=== PATIENT | female | born 1935 | race Caucasian/White ===

== ENCOUNTER → 2016-05-28 | Outpatient (CLI) | payer BC ==
[~2016-05-28] MED LIST: CALC-440 PO; CHOL1CAP13 PO; DILT-117 PO; GLUCTAB7 PO; IRON PO; OMEGCAP2 PO; RXC5 PO
[2016-05-28 08:36] LABS: BLOOD UREA NITROGEN 18 mg/dl (7-18); BUN/CREATININE RATIO 18.9 (10-20); CALCIUM 9.1 mg/dl (8.5-10.1); CARBON DIOXIDE 30 mmol/L (21-32); CHLORIDE 108 mmol/L (98-107); CREATININE 0.95 mg/dl (0.60-1.20); GLUCOSE 86 mg/dl (70-99); POTASSIUM 4.2 mmol/L (3.5-5.1); SODIUM 143 mmol/L (136-145)
== END | disposition home or self-care (01) ==
LOC: C.LABFOXMH 08:07
PROVIDERS: ATTEND Internal Medicine
DX: I10 Essential (primary) hypertension (principal)

== ENCOUNTER → 2017-02-01 | Outpatient (CLI) | payer BC ==
[~2017-02-01] MED LIST changes: +CYAN100020 PO; +DILT-113 PO; +EPLE25TA3 PO; +GLUCTAB32 PO
== END | disposition home or self-care (01) ==
LOC: C.RDSM 14:12
PROVIDERS: ATTEND Orthopaedic Surgery
DX: M79.604 Pain in right leg (principal); M79.605 Pain in left leg

== ENCOUNTER 2017-03-15 06:31 | Inpatient (IN) | payer BC, OTHER ==
[2017-02-11 11:45] VITALS: BMI 29.0
--- NOTE | 2017-02-11 12:25 | PAT Medication Instructions ---
Service Date Feb 11, 2017. Current Home Medication List Calcium Citrate-Vitamin D (Calcium Citrate + D3), 1 TAB PO QAM Cholecalciferol (D3), 2,000 INTER.UNIT PO QPM Cyanocobalamin (Vitamin B12), 1,000 MCG PO QPM Diltiazem Hcl Ext Rel (Tiazac), 180 MG PO QPM Eplerenone (Eplerenone), 25 MG PO QAM Oyttaeanrit-Trmhsreuega-Gg Cho (Glucosamine Chondroitin &), 1 TAB PO QAM [place]-3 Fatty Acids (Fish Oil), 1 TAB PO QAM [Iron], 65 MG PO QAM Medication Instructions For Your Scheduled Surgery - Hold the following medications 2 weeks prior to surgery: Ogvhdubxwsz-Adxeeuqxoeo-Px Cho (Glucosamine Chondroitin &), 1 TAB PO QAM [place]-3 Fatty Acids (Fish Oil), 1 TAB PO QAM - Hold the following medications the morning of surgery: Calcium Citrate-Vitamin D (Calcium Citrate + D3), 1 TAB PO QAM [Iron], 65 MG PO QAM Eplerenone (Eplerenone), 25 MG PO QAM - Take the following medications as scheduled the night before surgery: Cholecalciferol (D3), 2,000 INTER.UNIT PO QPM Cyanocobalamin (Vitamin B12), 1,000 MCG PO QPM Diltiazem Hcl Ext Rel (Tiazac), 180 MG PO QPM Nothing to eat or drink after midnight If you have any questions please call us at [phone] or [phone] or [phone]
--- NOTE | 2017-02-11 13:14 | DIAGNOSTIC IMAGING REPORT ---
CHEST 2 VIEWS ROUTINE CLINICAL HISTORY: 81 years-old Female presenting with preadmission chest x-ray. TECHNIQUE: PA and lateral views of the chest were obtained. COMPARISON: 12/30/2013. FINDINGS: Atherosclerosis of aortic arch. Cardiac silhouette normal in size. Lungs and pleural spaces clear. Right shoulder arthroplasty. Degenerative change of the spine. Upper abdomen normal. IMPRESSION: 1. No acute cardiopulmonary disease. Electronically signed by: Alejo Ball M.D. 02/11/2017 1:13 PM Dictated Date/Time: 02/11/2017 1:12 PM
[2017-02-11 13:38] LABS: BASO % 0.3 %; BASO ABS # 0.02 K/uL (0-0.2); EOS % 2.1 %; EOS ABS # 0.13 K/uL (0-0.5); HEMATOCRIT 42.7 % (37-47); HEMOGLOBIN 13.9 g/dL (12.0-16.0); IG# 0.02 K/uL (0.00-0.02); LYMPH ABS # 1.95 K/uL (1.2-3.4); MEAN CELL VOLUME 95.5 fL (80-100); MEAN CORPUSCULAR HEMOGLOBIN 31.1 pg (25-34); MEAN CORPUSCULAR HGB CONC 32.6 g/dl (32-36); MEAN PLATELET VOLUME 9.7 fL (7.4-10.4); MONO % 7.9 %; MONO ABS # 0.48 K/uL (0.11-0.59); NEUT % 57.4 %; NEUT ABS # 3.49 K/uL (1.4-6.5); PLATELET COUNT 316 K/uL (130-400); RED CELL DISTRIBUTION WIDTH CV 13.6 % (11.5-14.5); RED CELL DISTRIBUTION WIDTH SD 47.4 fL (36.4-46.3); WHITE BLOOD COUNT 6.09 K/uL (4.8-10.8)
[2017-02-11 13:50] LABS: INR 0.9 (0.9-1.1); PTT PATIENT 24.5 SECONDS (21.0-31.0)
[2017-02-11 14:24] LABS: CALCIUM 9.3 mg/dl (8.5-10.1); CREATININE 0.93 mg/dl (0.60-1.20); POTASSIUM 4.4 mmol/L (3.5-5.1)
--- NOTE | 2017-03-08 08:23 | HISTORY & PHYSICAL EXAMINATION ---
DATE OF ADMISSION: 03/15/2017 CHIEF COMPLAINT: Right knee pain and discomfort. HISTORY OF PRESENT ILLNESS: The patient is an 81-year-old very healthy, active spry female who presents for surgical treatment of her right knee. She has a long history of right knee pain and discomfort. She describes it has gotten worse over the past 5-10 years. She has been through extensive conservative treatment including injections with steroids and viscosupplementation which has become less successful over time. Minimal response from the injections. The more she walks, the more it hurts. It is global pain. It is worse going up and down steps. She would like to have her right knee replaced as it is interfering with her quality of life. PAST MEDICAL HISTORY: 1. Hypertension. 2. History of breast cancer status post mastectomy in remission. 3. Short term memory loss. PAST SURGICAL HISTORY: Include: 1. Breast cancer mass/mastectomy. 2. Right shoulder replacement. ALLERGIES: None. CURRENT MEDICINES: Include: 1. Eplerenone once a day for blood pressure. 2. Diltiazem once a day for blood pressure. SOCIAL HISTORY: female. She is 81. Medical doctor is Dr. Fernandez. 1-2 drinks per day. Two children. FAMILY HISTORY: Significant for lung cancer. REVIEW OF SYSTEMS: Significant for breast cancer in remission. No chest pain or shortness of breath. No history of DVT or PE. No known bleeding problems. PHYSICAL EXAMINATION: GENERAL: Shows a pleasant, healthy appearing elderly female. Looks to be in excellent health. HEENT: Benign. NECK: Supple. No lymphadenopathy. LUNGS: Clear to auscultation. HEART: Regular rate and rhythm. ABDOMEN: Soft, nontender, nondistended. EXTREMITIES: Grossly neurovascularly intact except as follows: Examination of the right leg reveals the patient walks with a slight bit of limp. She has varus alignment to her knee. She got bony hypertrophy medially. Fairly stiff knee with about 10-15 degree flexion contracture, can only flex to about 90 degrees. No pain with hip motion. X-RAYS: X-rays of the right knee reviewed. It shows advanced right knee DJD. She has complete loss of her medial joint space. She has subchondral sclerosis. He has significant osteophytes particularly in the medial side of her knee. She has chondrocalcinosis laterally. She has significant patellofemoral disease as well. ASSESSMENT: An 81-year-old female with advanced right knee tricompartmental disease unresponsive to conservative treatment. She would like to have her right knee replaced. PLAN: We will take her to the operating room and do a right total knee replacement. The risks and benefits of this procedure were explained to the patient including but not limited to DVT, PE, , infection, neurological injury, vascular injury, bleeding problems, pain, limited range of motion, stiffness, failure to relieve her symptoms, incomplete relief of symptoms, need for further surgery in the future, fracture, leg length inequality, nerve palsy, etc. The patient understands and desires to proceed. Informed consent was obtained. As far as discharge plans, she is planning to be discharged to home using [facility] home program. Other options including [facility] are also a consideration depending on insurance issues. I will see her back 2 weeks postop. TITI
[2017-03-15] VITALS (11 sets, daily range): BP systolic 108–139; BP diastolic 61–78; PULSE 66–88; TEMP 36.4–36.9; O2SAT 92–99; Ht 157.5 cm; Wt 73.2 kg
[~2017-03-15] VITALS: Ht 157.5 cm; Wt 73.2 kg
[~2017-03-15 06:31] MED LIST changes: +ACETAMINOPHEN 500 MG TAB PO SCH; +BUPIVACAINE 0.5 % 5 MG/1 ML PF 10ML VIAL ONE; +BUPIVACAINE LIPOSOME 266 MG, BUPIVACAINE/EPINEPHRINE INJ 50 ML, SODIUM CHLORIDE 0.9% PF... INFIL SCH; +CEFAZOLIN 2000MG IV PUSH 10 ML IV SCH; -DILT-117 PO; +FAMOTIDINE 20 MG TAB PO SCH; +FENTANYL CITRATE INJ 50 MCG/1 ML 2 ML VIAL ONE; +GABAPENTIN 300 MG CAP PO SCH; -GLUCTAB7 PO; +LACTATED RINGER'S 1000ML 1,000 ML IV SCH; +LACTATED RINGER'S 1000ML 500 ML IV SCH; +LACTATED RINGER'S 1000ML IV SCH; +LACTATED RINGER'S 500 ML IV SCH; +METOCLOPRAMIDE HCL 10 MG TAB PO SCH; +MIDAZOLAM HCL 1 MG/ML 2ML VIAL ONE; +NSS 1000ML IV SCH; +ROPIVACAINE 0.5% 5 MG/ML 30 ML VIAL ONE; -RXC5 PO; +SCOPOLAMINE 1.5 MG TDSY TD SCH; +TRANEXAMIC ACID INJ 1,000 MG in SYRINGE 0 ML IV SCH
--- NOTE | 2017-03-15 06:48 | History & Physical Bridge Note ---
H&P Re-Evaluation Bridge Note: I have examined the patient, reviewed the History & Physical and in the interval since the performance of the History & Physical I have noted the following changes of clinical significance: No changes noted
[2017-03-15] MEDS ORDERED: PROPOFOL IV EMULSION 10 MG/ML 20 ML VIAL IV ONE ×2 (07:15→11:15)
[2017-03-15] MEDS ORDERED: HYDROmorphone INJ 2 MG/ML SYR/VIAL IV PRN (07:30)
[2017-03-15] MEDS ORDERED: ONDANSETRON INJ 2 MG/ML 2 ML VIAL IV PRN ×2 (07:30→11:00)
[2017-03-15] MEDS ORDERED: ATROPINE SULFATE 0.1 MG/ML 5ML SYR IV PRN (07:30)
[2017-03-15] MEDS ORDERED: EpHEDrine SULFATE INJ 50 MG/ML AMP IV PRN (07:30)
[2017-03-15] MEDS ORDERED: PHENYLEPHRINE 100MCG/ML 5ML SYR IV PRN (07:30)
[2017-03-15] MEDS ORDERED: MIDAZOLAM HCL 1 MG/ML 2ML VIAL ONE (07:41)
[2017-03-15] MEDS ORDERED: ALBUT/IPRATROP 3MG/0.5MG NEB 3 ML VIAL INH ONE (08:45)
[2017-03-15] MEDS ORDERED: BUPIVACAINE/EPINEPHRINE 0.25% 1:200,000 30 ML VIAL ONE (08:51)
[2017-03-15] MEDS ORDERED: BACITRACIN 50000 UNIT VIAL ONE (08:51)
[2017-03-15] MEDS ORDERED: BUPIVACAINE LIPOSOME 1/3% 266 MG/20 ML VIAL INFIL ONE (08:51)
[2017-03-15] MEDS ORDERED: SODIUM CHLORIDE 0.9% PF 50 ML VIAL ONE (08:51)
[2017-03-15] MEDS ORDERED: FENTANYL CITRATE INJ 50 MCG/1 ML 2 ML VIAL ONE ×2 (09:28→11:14)
--- NOTE | 2017-03-15 10:47 | [facility] Post Operative Brief Note ---
Immediate Operative Summary Operative Date Mar 15, 2017. Pre-Operative Diagnosis Right Knee Degenerative Joint Disease Post-Operative Diagnosis Same as preop Procedure(s) Performed Right Total Knee Arthroplasty Surgeon Dr. Boone Relish Blender Surgeon(s) Jair Christianson PA-C Estimated Blood Loss 50 ML Findings Consistent with Post-Op Diagnosis Fluids (cc crystalloids) 1800 cc Specimens A. Right Knee Bone and Tissue Drains None Anesthesia Type MAC Spinal Regional Complication(s) none Disposition Accompanied Pt To Recover: no Disposition: Recovery Room / PACU
[2017-03-15] MEDS ORDERED: MAGNESIUM HYDROXIDE SUSP 30 ML UDC PO PRN (11:00)
[2017-03-15] MEDS ORDERED: HYDROmorphone INJ 1 MG/ML SYR IV PRN (11:00)
[2017-03-15] MEDS ORDERED: BISACODYL 10 MG SUPP PR PRN (11:00)
[2017-03-15] MEDS ORDERED: ALUMINUM/MAGNESIUM/SIMETH (MAALOX MAX) 30 ML UDC PO PRN (11:00)
[2017-03-15] MEDS ORDERED: SILVER SULFADIAZINE 1% CR 50 GM JAR EXT PRN (11:00)
[2017-03-15] MEDS ORDERED: TRAMADOL HCL 50 MG TAB PO PRN (11:00)
[2017-03-15] MEDS ORDERED: ZOLPIDEM TARTRATE 5 MG TAB PO PRN (11:00)
[2017-03-15] MEDS ORDERED: METOCLOPRAMIDE HCL INJ 5 MG/ML 2 ML VIAL IV PRN (11:00)
--- NOTE | 2017-03-15 11:23 | DIAGNOSTIC IMAGING REPORT ---
R KNEE 1 OR 2 VIEWS ROUTINE CLINICAL HISTORY: AP/LATERAL IN PACU RIGHT KNEE joint replacement COMPARISON: None. DISCUSSION: Anatomic alignment status post total right knee arthroplasty. Good contact between prosthetic and underlying bone. Expected soft tissue postoperative change IMPRESSION: Anatomic alignment status post total right knee arthroplasty. The above report was generated using voice recognition software. It may contain grammatical, syntax or spelling errors. Electronically signed by: Lucien Longoria M.D. 03/15/2017 11:21 AM Dictated Date/Time: 03/15/2017 11:20 AM
--- NOTE | 2017-03-15 11:29 | OPERATIVE REPORT ---
DATE OF OPERATION: 03/15/2017 SURGEON: Diego Boone MD. HOSIERY LOOPER: RASHAWN Mcdaniel. PREOPERATIVE DIAGNOSIS: Right knee degenerative joint disease. POSTOPERATIVE DIAGNOSIS: Same. PROCEDURE PERFORMED: Right cemented posterior stabilized total knee arthroplasty. COMPLICATIONS: None. ESTIMATED BLOOD LOSS: 50 mL. FLUID REPLACEMENT: 1800 mL crystalloid fluid replacement. TOURNIQUET TIME: 55 minutes at 300 mmHg. ANESTHESIA: Spinal with adductor canal block. DRAINS: None. SPECIMENS: Right knee sent for pathology. OPERATIVE INDICATIONS: The patient is an 81-year-old fairly active and healthy female who has had a long history of right knee pain and discomfort. She has been through extensive conservative treatment including injection and viscosupplementation which became less successful over time. X-rays revealed advanced right knee arthritis. The patient elected to proceed with operative treatment. OPERATIVE FINDINGS: Operative findings revealed advanced diffuse grade 4 wfqb-cr-xzbd disease severe in all 3 compartments. She had a varus deformity to her knee. A moderate sized joint effusion. OPERATIVE IMPLANTS: Operative implants consisted of: 1. Biomet Vanguard size 62.5 right posterior stabilized femoral component. 2. Biomet size 63 tibial tray. 3. A 10 mm posterior stabilized polyethylene insert. 4. A 31 x 8 all poly patella. OPERATIVE PROCEDURE: The patient taken to the operating room, identified and placed on the operating table in supine position. All contact areas were appropriately padded. IV antibiotics were provided by anesthesia team. A spinal anesthetic and adductor canal block had been provided in the holding area. Snow catheter was placed in a sterile fashion. Right thigh tourniquet was then placed and the right lower extremity was then prepped and draped in the usual sterile fashion. The right leg was elevated and exsanguinated with Esmarch and tourniquet was placed at 300 mmHg. An anterior approach to the right knee was then performed through a longitudinal incision centered over the patella. Sharp dissection was carried through the subcutaneous tissues down to the level of the extensor mechanism. Medial parapatellar arthrotomy incision was made. Some subperiosteal dissection was carried out medially. The fat pad was resected from beneath the patellar tendon. The lateral patellofemoral ligament was released. The patella was everted and knee was flexed. The osteophytes were taken off the distal femur. The ACL and PCL were then released from the distal femur and the tibia subluxated anteriorly. The external tibial alignment jig was then placed in the anterior face of the tibia and adjusted 14 mm medially. Proximal tibial cut was made to remove about a millimeter or 2 of bone from the most deficient aspect of the medial tibial plateau. Some osteophytes were taken off medial and posteromedially. Tibia was sized to a size 63. Attention was then drawn to the femur. The distal femur was entered with a sharp drill bit. Intramedullary canal was suctioned. A right 5 degree valgus cutting guide was placed. The distal femoral cutting block was pinned in place. Distal femoral cut was made to take an additional 3 mm of bone off the distal femur. The femur was then sized to a size 62.5. The AP cutting block was pinned parallel to the epicondylar axis, which was 3 degrees of external rotation. The anterior cut, anterior chamfer cut, posterior cut, posterior chamfer cuts were made. Box cutting guide was placed and adjusted slightly lateral and the box cut was made. The knee was flexed. The remnants of the medial and lateral menisci were excised. The osteophytes were taken off the posterior aspect of the femur. Trial femoral component was placed. Tibial tray was pinned in maximum external rotation and drill and stem punch were used to create defect in proximal tibia for the tibial tray. The knee was then trialed and the 10 mm insert fit most appropriately. Attention was then drawn to the patella. The patella was cleaned of all soft tissues. Patella thickness measured 23 mm in thickness and was cut down to 14. It was sized to a size 31 patella. Lug holes were drilled for a 31 patella. Lateral osteophyte was removed. Patella button was placed. Knee was taken through range of motion and the patella tracked nicely with no thumbs test. Attention was then drawn toward placement of the permanent components. All trial components were removed. A bone plug was placed in the distal femur to limit blood loss. A double batch of Palacos G cement was mixed. A right size 62.5 posterior stabilized femoral component, size 63 tibial tray, a 10 mm posterior stabilized polyethylene insert, and a 31 x 8 all poly patella were then cemented in place. Knee was brought out into full extension until cement hardened. A final cement check was then performed. Pericapsular tissues were injected with a total of 100 mL of a combination of 20 mL of Exparel, 30 mL of normal saline, 50 mL of 0.25% Marcaine with epinephrine. The patient did receive 1 gram of tranexamic acid. The tourniquet was then let down for a final tourniquet time of 55 minutes. Hemostasis was assured with use of electrocautery. Extensor mechanism was then closed with a combination of #1 PDS suture and #1 Vicryl suture in a erwjxf-eo-qkjxm fashion. Extensor mechanism was checked and found to be intact. The subcutaneous tissues were then closed with 2-0 Dexon suture in a buried interrupted fashion. Skin was closed with skin james. Leg was then cleaned and dried and a sterile dressing of Xeroform, 4 x 4, sterile cast padding and Anibal bandage were applied. The patient then transferred to the recovery room in stable condition. The patient tolerated the procedure with no complications. All needle and sponge counts were correct at the end of the operation. I attest to the content of the Intraoperative Record and any orders documented therein. Any exception s are noted below.
--- NOTE | 2017-03-15 12:17 | Anesthesiology Progress Note ---
Anesthesia Post Op Note Date & Time Mar 15, 2017 at 12:17 Vital Signs Pain Intensity: 0.0 Vital Signs Past 12 Hours Date Time Temp Pulse Resp B/P (MAP) Pulse Ox O2 Delivery O2 Flow Rate FiO2 03/15/17 12:11 66 16 111/69 (83) 97 Nasal Cannula 2.0 03/15/17 11:40 99 Nasal Cannula 2.0 03/15/17 11:40 36.4 71 18 108/61 (77) 99 Nasal Cannula 2.0 03/15/17 11:40 99 Nasal Cannula 2.0 03/15/17 11:22 65 17 96 03/15/17 11:22 67 17 03/15/17 11:21 122/62 03/15/17 11:17 36.8 03/15/17 11:17 69 14 97 03/15/17 11:17 66 14 03/15/17 11:16 108/58 03/15/17 11:12 73 19 96 03/15/17 11:12 73 19 03/15/17 11:11 109/56 03/15/17 11:10 65 16 03/15/17 11:10 65 16 98 03/15/17 11:06 108/53 03/15/17 11:05 65 15 03/15/17 11:05 65 15 96 03/15/17 11:01 119/50 03/15/17 11:00 65 15 03/15/17 11:00 65 15 98 03/15/17 10:55 72 24 03/15/17 10:55 72 24 107/63 98 03/15/17 10:50 78 20 104/56 03/15/17 10:50 36.8 75 17 104/56 96 Nasal Cannula 2 03/15/17 10:50 20 03/15/17 08:47 76 22 99 Mask 9.0 03/15/17 06:50 36.9 80 20 139/76 96 Room Air Notes Mental Status: alert / awake / arousable, participated in evaluation Pt Amnestic to Procedure: Yes Nausea / Vomiting: adequately controlled Pain: adequately controlled Airway Patency, RR, SpO2: stable & adequate BP & HR: stable & adequate Hydration State: stable & adequate Anesthetic Complications: no major complications apparent
[2017-03-15] MEDS: FERROUS GLUCONATE 324 MG TAB PO SCH ×2 (12:40→17:57)
[2017-03-15] MEDS: D5W AND 1/2NSS + 20MEQ KCL 1,000 ML IV SCH ×2 (13:20→21:40)
[2017-03-15] MEDS: ACETAMINOPHEN 500 MG TAB PO SCH ×2 (13:51→21:40)
[2017-03-15] MEDS: KETOROLAC TROMETHAMINE 15 MG/ML VIAL IV. SCH ×2 (13:51→20:47)
[2017-03-15] MEDS ORDERED: CHECK SCOPOLAMINE PATCH PLACEMENT SCH (16:00)
[2017-03-15] MEDS: CEFAZOLIN IV 1,000 MG in SYRINGE 0 ML IV SCH (16:18)
[2017-03-15] MEDS ORDERED: TRANEXAMIC ACID INJ 1,000 MG in SODIUM CHLORIDE 0.9% 100ML 100 ML IV SCH (17:00)
--- NOTE | 2017-03-15 18:22 | PROGRESS NOTE ---
DATE: 03/15/2017 SUBJECTIVE: An 81-year-old female postop from a right knee replacement. She is doing well. Pain is controlled. No chest pain or shortness of breath. Not feeling dizzy or lightheaded. Not feeling any pain at all. OBJECTIVE: VITAL SIGNS: Temperature 36.4. Vital signs stable. GENERAL: Reveals a healthy pleasant elderly female. She is lying in bed on heel prop. She looks comfortable. LUNGS: Clear to auscultation. HEART: Regular rate and rhythm. ABDOMEN: Soft, nontender, nondistended. EXTREMITIES: Grossly neurovascularly intact except as follows: Examination of the right leg reveals the dressing to be clean, dry and intact. Leg is well aligned. She can dorsiflex and plantarflex her foot appropriately. She is neurologically intact. X-RAYS: X-rays of the right knee from recovery room reviewed. She has a right cemented posterior stabilized total knee arthroplasty. Components looked to be in good position. No signs of problems. ASSESSMENT: An 81-year-old female postop from a right knee replacement, doing well. Pain is controlled. She is neurologically intact. PLAN: 1. DVT prophylaxis including thigh-high TEDs, SCDs, and aspirin twice a day. 2. PT/OT. Weightbearing as tolerated. Right total knee protocol. 3. Pain control. Doing well with current pain regimen. Not currently having any pain. 4. IV antibiotics x24 hours. 5. Disposition: She is hoping to be discharged to home health once adequately recovered.
[2017-03-15] MEDS: DILTIAZEM HCL (TIAzac) 180 MG CAPCR PO SCH (20:48)
[2017-03-15] MEDS: SENNA 8.6 MG TAB PO SCH (20:48)
[2017-03-15] MEDS: ASPIRIN 325 MG ECTAB PO SCH (20:48)
[2017-03-15] MEDS: CYANOCOBALAMIN 500 MCG TAB (VIT B-12) PO SCH (20:48)
[2017-03-15] MEDS: CHOLECALCIFEROL 1000 INTER.UNIT TAB PO SCH (20:49)
[2017-03-15] MEDS: DOCUSATE SODIUM 100 MG CAP PO SCH (20:49)
[2017-03-15] MEDS ORDERED: CHOLECALCIFEROL 1000 INTER.UNIT TAB PO SCH (21:00)
[2017-03-16] MEDS: CEFAZOLIN IV 1,000 MG in SYRINGE 0 ML IV SCH (00:04)
[2017-03-16] MEDS: KETOROLAC TROMETHAMINE 15 MG/ML VIAL IV. SCH ×4 (02:24→20:48)
[2017-03-16 04:05] VITALS: BP 104/62; PULSE 73; TEMP 37; O2SAT 91
[2017-03-16] MEDS: ACETAMINOPHEN 500 MG TAB PO SCH ×3 (05:50→22:46)
[2017-03-16 06:10] LABS: HEMATOCRIT 37.2 % (37-47); HEMOGLOBIN 12.2 g/dL (12.0-16.0); MEAN CELL VOLUME 94.7 fL (80-100); MEAN CORPUSCULAR HGB CONC 32.8 g/dl (32-36); MEAN PLATELET VOLUME 9.9 fL (7.4-10.4); PLATELET COUNT 260 K/uL (130-400); RED CELL DISTRIBUTION WIDTH CV 13.4 % (11.5-14.5); RED CELL DISTRIBUTION WIDTH SD 46.5 fL (36.4-46.3); WHITE BLOOD COUNT 8.04 K/uL (4.8-10.8)
[2017-03-16 06:38] LABS: CREATININE 0.86 mg/dl (0.60-1.20)
[2017-03-16 06:39] LABS: CALCIUM 8.3 mg/dl (8.5-10.1)
[2017-03-16 07:02] VITALS: BP 114/65; PULSE 71; TEMP 36.6; O2SAT 94
--- NOTE | 2017-03-16 08:18 | PROGRESS NOTE ---
DATE: 03/16/2017 SUBJECTIVE: An 81-year-old female postop day #1 from a right knee replacement. She is doing well. Pain is controlled. Really not complaining of much pain at all. No chest pain or shortness of breath. Not feeling dizzy or lightheaded. OBJECTIVE: VITAL SIGNS: Temperature 37.0. Vital signs stable. GENERAL: Physical examination reveals a pleasant elderly female. She is lying in bed and looks completely comfortable. LUNGS: Clear to auscultation. HEART: Has regular rate and rhythm. ABDOMEN: Soft, nontender, and nondistended. EXTREMITIES: Grossly neurovascularly intact except as follows: Examination of the right leg reveals the dressing to be clean, dry and intact. Leg is well aligned. She can dorsiflex and plantarflex her foot appropriately. She is neurologically intact. LABORATORY DATA: Hemoglobin 12.2 and hematocrit 37.2. Electrolytes are stable. ASSESSMENT: An 81-year-old female postop day 1 from right knee replacement, doing well. Pain is controlled. PLAN: 1. DVT prophylaxis including thigh-high TEDs, SCDs, and aspirin twice a day. 2. PT/OT. Weightbear as tolerated. Right total knee protocol. 3. Pain control. Doing well with current pain regimen. 4. Disposition: Plan to discharge to home with home health once adequately recovered.
[2017-03-16] MEDS: DOCUSATE SODIUM 100 MG CAP PO SCH ×2 (09:00→20:43)
[2017-03-16] MEDS: MULTIVITAMIN TAB PO SCH (09:01)
[2017-03-16] MEDS: PANTOprazole SOD 40 MG TAB PO SCH (09:01)
[2017-03-16] MEDS: CALCIUM 600MG + VIT D 400 IU TAB PO SCH (09:01)
[2017-03-16] MEDS: FERROUS GLUCONATE 324 MG TAB PO SCH ×3 (09:01→17:57)
[2017-03-16] MEDS: ASPIRIN 325 MG ECTAB PO SCH ×2 (09:01→20:48)
[2017-03-16] MEDS: D5W AND 1/2NSS + 20MEQ KCL 1,000 ML IV SCH (09:03)
[2017-03-16 12:52] VITALS: BP 114/65; PULSE 71; O2SAT 95
[2017-03-16 15:06] VITALS: BP 150/68; PULSE 96; TEMP 37.2; O2SAT 94
[2017-03-16] MEDS ORDERED: ULT50X PO (17:40)
[2017-03-16] MEDS ORDERED: ACET-24 PO (17:40)
[2017-03-16] MEDS ORDERED: ASPEC325 PO (17:40)
--- NOTE | 2017-03-16 17:43 | Discharge Instructions ---
Discharge Instructions Date of Service Mar 16, 2017. Admission Reason for Admission: Right Knee Degenerative Joint Disease Discharge Discharge Diagnosis / Problem: Right Knee Replacement Discharge Goals Goal(s): Decrease discomfort, Improve function, Increase independence, Improve disease control, Therapeutic intervention Activity Recommendations Activity Limitations: per Instructions/Follow-up section Weightbearing Status: Right weightbearing . Instructions / Follow-Up Instructions / Follow-Up ACTIVITY RECOMMENDATIONS: Physical Therapy: * You will go to physical therapy three times each week for four to six weeks after your surgery in order to regain your knee range of motion and to retrain your knee to work properly. * It is just as important to make sure you are getting your knee perfectly straight as it is to regain your knee bend. * Taking a pain pill an hour before therapy can help you have a more productive and comfortable therapy session. Home Exercise: * You were shown a series of exercises (heel props, heel slides, etc.) in the hospital. Do these exercises three to four times each day including the exercises you were shown in physical therapy. Walking: * Get up and walk several times each day. For the first four weeks, try not to stand or walk for more than one hour at a time. If you do stand or walk for more than one hour, you will not hurt anything, but your knee and leg will likely swell. * As you feel comfortable, you may change from the walker or crutches to a cane and then to independent walking. MEDICATIONS: New Medicine: * You will likely be taking one or more of these medications: 1. Tramadol - A quick and shorter-acting pain medication. Take one to two tablets every four to six hours to lessen your pain. 2. Aspirin - Thins your blood to lessen the chance of forming a blood clot. * The most common side effects of pain medicine and iron are nausea and constipation. If nausea or constipation is too much of a problem or if you have any questions about your new medicines or doses, call [facility] at . We will try to help you manage these issues. VERY IMPORTANT TO READ AND REVIEW" Pain: * The immediate post-operative period after knee replacement surgery is often quite painful. * You are given a prescription for pain medicine. You should take it, as directed, when you need it, especially before physical therapy and before going to bed. Pain that interferes with sleep is very common and can last several months. * You will likely need pain medicine for the first four to six weeks. It will not stop all of the pain. The pain will lessen and as you feel better, you may change to milder pain medicine such as Tylenol. * The most common side effects of pain medicine are nausea and constipation, so don't take more than you need. SPECIAL CARE INSTRUCTIONS: TEDs/Elastic Stockings: * The white elastic stockings help limit swelling and prevent blood clots from forming in your legs. The more you wear them, the more they work. * Wear them for six weeks after knee replacement surgery and four weeks after partial knee replacement. Prevention of Infection: * Take antibiotics one hour before any dental cleaning, dental work, urological procedure, gastrointestinal procedure or any invasive surgery in order to prevent your new joint from getting infected. * You may get the antibiotics from the doctor performing the procedure or you may call our office at before and we will call in a prescription to the pharmacy of your choice. Things to Watch For: * Drainage from the incision site that occurs more than one week after your surgery. * Severely increased knee/leg pain or swelling. * Increased redness at the incision site. * Fever above 102 degrees Fahrenheit. * Unusual chest pain or shortness of breath. * Unusual pain or burning with urination. Call [facility] at with any of the above problems or if you have any questions about your medicines or recovery. FOLLOW UP VISIT: Make an appointment to see your doctor for approximately two weeks after surgery for a progress check and staple removal by calling the office at . Current Hospital Diet Patient's current hospital diet: Regular Diet Discharge Diet Recommended Diet: Regular Diet Procedures Procedures Performed: Right Total Knee Arthroplasty Pending Studies Studies pending at discharge: no Medical Emergencies . Who to Call and When: Medical Emergencies: If at any time you feel your situation is an emergency, please call [phone] immediately. . Non-Emergent Contact Non-Emergency issues call your: Surgeon . "Provider Documentation" section prepared by Diego Boone. . VTE Core Measure Inpt VTE Proph given/why not?: Other Anticoagulation, T.E.D. Stockings, SCD's
[2017-03-16] MEDS: SENNA 8.6 MG TAB PO SCH (20:43)
[2017-03-16 20:45] VITALS: BP 130/72; PULSE 84
[2017-03-16] MEDS: DILTIAZEM HCL (TIAzac) 180 MG CAPCR PO SCH (20:48)
[2017-03-16] MEDS: CYANOCOBALAMIN 500 MCG TAB (VIT B-12) PO SCH (20:49)
[2017-03-16] MEDS: CHOLECALCIFEROL 1000 INTER.UNIT TAB PO SCH (20:49)
[2017-03-16 22:57] VITALS: BP 116/71; PULSE 92; TEMP 36.6; O2SAT 95
[2017-03-17] MEDS: KETOROLAC TROMETHAMINE 15 MG/ML VIAL IV. SCH ×2 (01:44→08:25)
[2017-03-17] MEDS: ACETAMINOPHEN 500 MG TAB PO SCH (05:44)
[2017-03-17 07:10] VITALS: BP 112/66; PULSE 72; TEMP 36.6; O2SAT 94
--- NOTE | 2017-03-17 07:41 | PROGRESS NOTE ---
DATE: 03/17/2017 SUBJECTIVE: An 81-year-old female postop day #2 from a right knee replacement. She is doing well. Pain is controlled. Therapy has gone well. No chest pain or shortness of breath. Not feeling dizzy or lightheaded. OBJECTIVE: VITAL SIGNS: Temperature 36.6. Vital signs stable. GENERAL: Physical examination reveals a pleasant elderly female. She is lying in bed and looks pretty comfortable. She is doing a heel prop. Her incision is clean, dry and intact. Some mild bruising. She can do a straight leg raise. She is neurologically intact. Calf is soft and supple. ASSESSMENT: An 81-year-old female postop day #2 from a right knee replacement, doing well. Pain is controlled. PLAN: 1. DVT prophylaxis including thigh-high TEDs, SCDs, and aspirin twice a day. 2. PT/OT. Weightbear as tolerated. Right total knee protocol. 3. Pain control. Doing well with current pain regimen. We will stick to Tylenol as much as possible and use tramadol if needed. 4. Disposition: Plan to discharge to home with some home health after therapy today. ZULLYD
[2017-03-17 07:54] VITALS: BP 112/66; PULSE 72; TEMP 36.6; O2SAT 94
[2017-03-17] MEDS: DOCUSATE SODIUM 100 MG CAP PO SCH (08:25)
[2017-03-17] MEDS: MULTIVITAMIN TAB PO SCH (08:25)
[2017-03-17] MEDS: CALCIUM 600MG + VIT D 400 IU TAB PO SCH (08:25)
[2017-03-17] MEDS: PANTOprazole SOD 40 MG TAB PO SCH (08:25)
[2017-03-17] MEDS: FERROUS GLUCONATE 324 MG TAB PO SCH (08:25)
[2017-03-17] MEDS: ASPIRIN 325 MG ECTAB PO SCH (08:25)
--- NOTE | 2017-03-20 13:37 | DISCHARGE SUMMARY ---
ADMITTING PHYSICIAN AND SURGEON: Dr. Boone. ADMITTING DIAGNOSIS: Right knee degenerative joint disease. SURGERY PERFORMED: Right total knee arthroplasty. SECONDARY DIAGNOSES: Hypertension, history of breast cancer, short term memory loss. HISTORY AND PHYSICAL EXAMINATION: Well documented in the patient's chart. CONSULTS: None obtained. HOSPITAL COURSE: The patient was admitted on 03/15/2017 underwent total knee arthroplasty, tolerated the procedure well. There were no complications. She was transferred to the PACU postoperatively and later to the orthopedic floor for further care. She was given Ancef for antibiotic prophylaxis, MARK stockings, SCDs and aspirin for DVT prophylaxis. Hemoglobin, hematocrit and vital signs were monitored during her hospital stay and remained stable. She did not require any blood transfusions. There were no complications. By postoperative day 2, she was tolerating a regular diet, pain was controlled with oral pain medicine. She was participating in physical therapy. On postoperative day 2, she was discharged home and set up with home health services. She was given printed discharge instructions including new prescriptions for extra strength Tylenol, aspirin 325 mg b.i.d., tramadol. Continue her home medications, continue physical therapy, weightbearing as tolerated, MARK stockings. Follow up in 10-12 days or sooner if there are any problems or concerns.
== END 2017-03-17 11:00 | disposition home health service (06) | DRG 470 ==
LOC: C.ACU 06:31 → C.3E 06:40 → ENRESERV 11:10
PROVIDERS: ADMIT Orthopaedic Surgery Sports Medicine; ATTEND Orthopaedic Surgery Sports Medicine
PROC: 0SRC0J9 Replacement of Right Knee Joint with Synthetic Substitute, Cemented, Open Approach (ICD-10-PCS; principal; 2017-03-15 09:00)
DX: M17.11 Unilateral primary osteoarthritis, right knee (principal); I10 Essential (primary) hypertension; Z79.899 Other long term (current) drug therapy

== ENCOUNTER 2017-03-25 06:49 | Emergency (ER) | payer BC, OTHER ==
[~2017-03-25] VITALS: Ht 157.5 cm; Wt 74.6 kg
[~2017-03-25 06:49] MED LIST changes: +ACET-24 PO; -ACETAMINOPHEN 500 MG TAB PO SCH; +ASPEC325 PO; -BUPIVACAINE 0.5 % 5 MG/1 ML PF 10ML VIAL ONE; -BUPIVACAINE LIPOSOME 266 MG, BUPIVACAINE/EPINEPHRINE INJ 50 ML, SODIUM CHLORIDE 0.9% PF... INFIL SCH; -CEFAZOLIN 2000MG IV PUSH 10 ML IV SCH; -FAMOTIDINE 20 MG TAB PO SCH; -FENTANYL CITRATE INJ 50 MCG/1 ML 2 ML VIAL ONE; -GABAPENTIN 300 MG CAP PO SCH; -LACTATED RINGER'S 1000ML 1,000 ML IV SCH; -LACTATED RINGER'S 1000ML 500 ML IV SCH; -LACTATED RINGER'S 1000ML IV SCH; -LACTATED RINGER'S 500 ML IV SCH; -METOCLOPRAMIDE HCL 10 MG TAB PO SCH; -MIDAZOLAM HCL 1 MG/ML 2ML VIAL ONE; -NSS 1000ML IV SCH; -ROPIVACAINE 0.5% 5 MG/ML 30 ML VIAL ONE; -SCOPOLAMINE 1.5 MG TDSY TD SCH; -TRANEXAMIC ACID INJ 1,000 MG in SYRINGE 0 ML IV SCH; +ULT50X PO
[2017-03-25 07:05] VITALS: TEMP 36.7; O2SAT 97; Ht 157.5 cm; Wt 74.6 kg
[2017-03-25] MEDS ORDERED: SODIUM CHLORIDE 0.9% 500ML 500 ML IV STA (07:26)
[2017-03-25] MEDS ORDERED: MECLIZINE HCL 25 MG TAB PO STA (07:26)
--- NOTE | 2017-03-25 07:40 | DIAGNOSTIC IMAGING REPORT ---
CHEST ONE VIEW PORTABLE CLINICAL HISTORY: EVALUATE ALTERED MENTAL STATUS/WEAKNESS COMPARISON STUDY: Chest radiograph February 11, 2017. FINDINGS: Right shoulder arthroplasty is incidentally noted. Lung volumes are normal. There is no pneumothorax or pleural effusion. No consolidation is identified and there is no evidence for pulmonary edema. Cardiomediastinal silhouette is stable. IMPRESSION: No acute cardiopulmonary findings. Electronically signed by: Murphy Turk M.D. 03/25/2017 7:39 AM Dictated Date/Time: 03/25/2017 7:37 AM
[2017-03-25 08:17] LABS: BASO % 0.3 %; BASO ABS # 0.02 K/uL (0-0.2); EOS % 5.3 %; HEMATOCRIT 36.7 % (37-47); HEMOGLOBIN 12.3 g/dL (12.0-16.0); IG# 0.07 K/uL (0.00-0.02); LYMPH % 19.6 %; LYMPH ABS # 1.48 K/uL (1.2-3.4); MEAN CELL VOLUME 93.4 fL (80-100); MEAN CORPUSCULAR HEMOGLOBIN 31.3 pg (25-34); MEAN CORPUSCULAR HGB CONC 33.5 g/dl (32-36); MEAN PLATELET VOLUME 8.8 fL (7.4-10.4); MONO % 10.4 %; MONO ABS # 0.79 K/uL (0.11-0.59); NEUT % 63.5 %; PLATELET COUNT 450 K/uL (130-400); RED CELL DISTRIBUTION WIDTH CV 13.2 % (11.5-14.5); RED CELL DISTRIBUTION WIDTH SD 45.4 fL (36.4-46.3); WHITE BLOOD COUNT 7.56 K/uL (4.8-10.8)
[2017-03-25 08:24] LABS: INR 0.9 (0.9-1.1); PTT PATIENT 31.4 SECONDS (21.0-31.0)
[2017-03-25 08:34] LABS: ALBUMIN 2.9 gm/dl (3.4-5.0); ALT/SGPT 28 U/L (12-78); AST/SGOT 25 U/L (15-37); BLOOD UREA NITROGEN 17 mg/dl (7-18); CARBON DIOXIDE 23 mmol/L (21-32); CREATININE 0.81 mg/dl (0.60-1.20); GLUCOSE 96 mg/dl (70-99); LIPASE 173 U/L (73-393); SODIUM 138 mmol/L (136-145)
[2017-03-25 08:37] LABS: ALKALINE PHOSPHATASE 73 U/L (45-117); CKMB 0.7 ng/ml (0.5-3.6); TOTAL PROTEIN 6.7 gm/dl (6.4-8.2)
[2017-03-25 10:27] VITALS: BP 153/79; PULSE 70
--- NOTE | 2017-03-25 14:51 | EMERGENCY ROOM VISIT NOTE ---
History First contact with patient: 07:18 Chief Complaint: DIZZY Stated Complaint: DIZZINESS Nursing Triage Summary: pt presents to ed with c/o dizziness. pt states began last pm. pt states with any movement becomes dizzy. pt denies any other symptoms. pt had recent rt tka 03/[address] buckner. incision healing. leg warm to touch. History of Present Illness The patient is a 81 year old female who presents to the Emergency Room with complaints of dizziness that started last evening. She states that her symptoms are worse with movement. She also reports having had a right knee arthroplasty on 03/[address] Buckner. The patient states that her symptoms have been doing well with regard to her knee surgery. She states that she got dizzy when getting out of bed that causes her feel like things were moving a little. She also reported a little lightheadedness. She states that it is worse when she is upright. She denies any fevers, chest pains or recent illness. Denies any headaches. No focal deficits. Review of Systems As above otherwise negative for 10 systems Past Medical/Surgical History Medical Problems: (1) Right Knee DJD Social History Smoking Status: Unknown if Ever Smoked Current/Historical Medications Scheduled Acetaminophen (Sb Non-Aspirin Extra Stre), 1,000 MG PO Q8H Aspirin (Aspirin), 325 MG PO BID Calcium Citrate-Vitamin D (Calcium Citrate + D3), 1 TAB PO QAM Cholecalciferol (D3), 2,000 INTER.UNIT PO QPM Cyanocobalamin (Vitamin B12), 1,000 MCG PO QPM Diltiazem Hcl Ext Rel (Tiazac), 180 MG PO QPM Eplerenone (Eplerenone), 25 MG PO QAM Kpplehwcxnz-Jxiryeiyjpe-Jd Cho (Glucosamine Chondroitin &), 1 TAB PO QAM [place]mond[place]-3 Fatty Acids (Fish Oil), 1 TAB PO QAM [Iron], 65 MG PO QAM Scheduled PRN Tramadol HCl (Tramadol HCl), 50-100 MG PO Q6H PRN for Pain Physical Exam Vital Signs Date Time Temp Pulse Resp B/P (MAP) Pulse Ox O2 Delivery O2 Flow Rate FiO2 03/25/17 10:27 70 18 153/79 03/25/17 09:12 75 145/95 78 160/90 80 175/73 03/25/17 08:22 187/89 03/25/17 07:05 36.7 75 18 160/86 97 Room Air 03/25/17 06:59 75 Physical Exam VITAL SIGNS: were reviewed as above. GENERAL:Non-toxic in appearance. SKIN: Warm dry and pink. HEAD: Normocephalic and atraumatic. OROPHARYNX: Is clear and moist NECK: Supple without lymphadenopathy or meningismus. LUNGS: Are clear. HEART: Regular rate and rhythm. ABDOMEN: Soft and nontender. EXTREMITIES: Warm and well perfused. NEUROLOGICALLY: Awake alert and oriented without focal deficit. Cranial nerves 2-12 are intact. There is no pronator drift. Cerebellar testing is within normal limits. There is no nystagmus. There is no facial droop. Speech is clear. Vision is grossly normal. MUSCULOSKELETAL: Good muscle tone. No evidence of trauma. Strength is symmetric. ALL NURSING NOTES WERE REVIEWED. Medical Decision & Procedures ER Provider Diagnostic Interpretation: CHEST ONE VIEW PORTABLE CLINICAL HISTORY: EVALUATE ALTERED MENTAL STATUS/WEAKNESS COMPARISON STUDY: Chest radiograph February 11, 2017. FINDINGS: Right shoulder arthroplasty is incidentally noted. Lung volumes are normal. There is no pneumothorax or pleural effusion. No consolidation is identified and there is no evidence for pulmonary edema. Cardiomediastinal silhouette is stable. IMPRESSION: No acute cardiopulmonary findings. Laboratory Results 03/25/17 08:00 Red Blood Count 3.93, Mean Corpuscular Volume 93.4, Mean Corpuscular Hemoglobin 31.3, Mean Corpuscular Hemoglobin Concent 33.5, Mean Platelet Volume 8.8, Neutrophils (%) (Auto) 63.5, Lymphocytes (%) (Auto) 19.6, Monocytes (%) (Auto) 10.4, Eosinophils (%) (Auto) 5.3, Basophils (%) (Auto) 0.3, Neutrophils # (Auto ) 4.80, Lymphocytes # (Auto) 1.48, Monocytes # (Auto) 0.79, Eosinophils # (Auto ) 0.40, Basophils # (Auto) 0.02 03/25/17 08:00 Test 03/25/17 08:00 03/25/17 08:25 White Blood Count 7.56 K/uL (4.8-10.8) Red Blood Count 3.93 M/uL (4.2-5.4) Hemoglobin 12.3 g/dL (12.0-16.0) Hematocrit 36.7 % (37-47) Mean Corpuscular Volume 93.4 fL (80-100) Mean Corpuscular Hemoglobin 31.3 pg (25-34) Mean Corpuscular Hemoglobin Concent 33.5 g/dl (32-36) Platelet Count 450 K/uL (130-400) Mean Platelet Volume 8.8 fL (7.4-10.4) Neutrophils (%) (Auto) 63.5 % Lymphocytes (%) (Auto) 19.6 % Monocytes (%) (Auto) 10.4 % Eosinophils (%) (Auto) 5.3 % Basophils (%) (Auto) 0.3 % Neutrophils # (Auto) 4.80 K/uL (1.4-6.5) Lymphocytes # (Auto) 1.48 K/uL (1.2-3.4) Monocytes # (Auto) 0.79 K/uL (0.11-0.59) Eosinophils # (Auto) 0.40 K/uL (0-0.5) Basophils # (Auto) 0.02 K/uL (0-0.2) RDW Standard Deviation 45.4 fL (36.4-46.3) RDW Coefficient of Variation 13.2 % (11.5-14.5) Immature Granulocyte % (Auto) 0.9 % Immature Granulocyte # (Auto) 0.07 K/uL (0.00-0.02) Prothrombin Time 9.7 SECONDS (9.0-12.0) Prothromb Time International Ratio 0.9 (0.9-1.1) Activated Partial Thromboplast Time 31.4 SECONDS (21.0-31.0) Partial Thromboplastin Ratio 1.2 Anion Gap 9.0 mmol/L (3-11) Est Creatinine Clear Calc Drug Dose 50.6 ml/min Estimated GFR () 78.4 Estimated GFR (Non- 67.6 BUN/Creatinine Ratio 21.1 (10-20) Calcium Level 9.0 mg/dl (8.5-10.1) Magnesium Level 2.3 mg/dl (1.8-2.4) Total Bilirubin 0.4 mg/dl (0.2-1) Direct Bilirubin 0.1 mg/dl (0-0.2) Aspartate Amino Transf (AST/SGOT) 25 U/L (15-37) Alanine Aminotransferase (ALT/SGPT) 28 U/L (12-78) Alkaline Phosphatase 73 U/L (45-117) Total Creatine Kinase 41 U/L (26-192) Creatine Kinase MB 0.7 ng/ml (0.5-3.6) Creatine Kinase MB Ratio 1.7 (0-3.0) Troponin I < 0.015 ng/ml (0-0.045) Total Protein 6.7 gm/dl (6.4-8.2) Albumin 2.9 gm/dl (3.4-5.0) Lipase 173 U/L (73-393) Urine Color YELLOW Urine Appearance CLEAR (CLEAR) Urine pH 6.5 (4.5-7.5) Urine Specific [place] 1.012 (1.000-1.030) Urine Protein NEG (NEG) Urine Glucose (UA) NEG (NEG) Urine Ketones NEG (NEG) Urine Occult Blood NEG (NEG) Urine Nitrite NEG (NEG) Urine Bilirubin NEG (NEG) Urine Urobilinogen NEG (NEG) Urine Leukocyte Esterase NEG (NEG) Urine WBC (Auto) 0 /hpf (0-5) Urine RBC (Auto) 0-4 /hpf (0-4) Urine Hyaline Casts (Auto) 0 /lpf (0-5) Urine Epithelial Cells (Auto) 0-5 /lpf (0-5) Urine Bacteria (Auto) NEG (NEG) Medications Administered Medications (Trade) Dose Ordered Sig/Theodore Route Start Time Stop Time Status Last Admin Dose Admin Meclizine HCl (Antivert Tab) 25 mg NOW STAT PO 03/25/17 07:26 03/25/17 07:28 DC 03/25/17 07:50 25 MG Sodium Chloride 500 ml @ 999 mls/hr Q31M STAT IV 03/25/17 07:26 03/25/17 07:56 DC 03/25/17 08:28 999 MLS/HR ECG Indication: weakness Rate (beats per minute): 70 Rhythm: sinus rhythm Findings: no acute ischemic change, no ectopy Medical Decision This is an 81-year-old female who presents to the ED with a chief complaint of some dizziness. The patient states that her symptoms started last evening and seems worse with movement. She also reports that she had her right knee replaced March [address] Buckner. She states that that has been doing well. The patient denies any other significant symptoms complaints. She is not had recent illness, fevers, chest pains or shortness of breath. Her initial blood pressure was 160/86. Her physical exam was unremarkable. Neurologic exam was normal. Orthostatics were negative. A CBC and complete metabolic panel was unremarkable. Troponin is negative. EKG, per my interpretation revealed a normal sinus rhythm. Urine did not show infection. Chest x-ray was negative for acute disease. On reassessment, the patient is feeling fine. She was given IV fluids and by mouth meclizine. The patient was feeling better. She is felt to be stable for discharge. Impression Primary Impression: Dizziness Departure Information Dispostion Home / Self-Care Referrals Diego Buckner M.D. (PCP) Patient Instructions ED Dizziness [facility] [place], [facility] Additional Instructions Follow-up with your doctor for further care and evaluation in 1-2 days. Return to the emergency department for worsening or new symptoms or any concerns. You have been examined and treated today on an emergency basis only. This is not a substitute for, or an effort to provide, complete comprehensive medical care. It is impossible to recognize and treat all injuries or illnesses in a single emergency department visit. It is therefore important that you follow up closely with your doctor. Call as soon as possible for an appointment.
== END 2017-03-25 10:53 | disposition home or self-care (01) ==
LOC: EDBD 06:49 → C.EDA 06:51
DX: R42 Dizziness and giddiness (principal); Z96.651 Presence of right artificial knee joint; Z79.82 Long term (current) use of aspirin

== ENCOUNTER → 2017-09-16 | Outpatient (CLI) | payer BC ==
[2017-09-16 10:33] LABS: BLOOD UREA NITROGEN 14 mg/dl (7-18); CARBON DIOXIDE 28 mmol/L (21-32); CHOLESTEROL 193 mg/dl (0-200); CREATININE 0.91 mg/dl (0.60-1.20); GLUCOSE 82 mg/dl (70-99); LDL CHOLESTEROL CALCULATED 90 mg/dl; POTASSIUM 3.8 mmol/L (3.5-5.1); SODIUM 141 mmol/L (136-145)
== END | disposition home or self-care (01) ==
LOC: C.LABFOXMH 09:44
PROVIDERS: ATTEND Internal Medicine
DX: I10 Essential (primary) hypertension (principal); E78.00 Pure hypercholesterolemia, unspecified